=== PATIENT | female | born 1970 | race Caucasian/White ===

== ENCOUNTER 2016-09-13 06:22 | Inpatient (IN) | payer OTHER ==
[2016-09-12 09:19] VITALS: BMI 35.5
[2016-09-13] MEDS ORDERED: PNEUMOC 13-VAL CONJ-DIP CRM/PF 0.5 ML DISP.SYRIN IM ONE (06:57)
[2016-09-13] MEDS ORDERED: BUPIVACAINE HCL/PF 0.5% (5MG/ML) 10 ML VIAL ONE (07:18)
[2016-09-13] MEDS ORDERED: PROPOFOL 20 ML ONE ×3 (07:32)
[2016-09-13] MEDS ORDERED: LIDOCAINE HCL/PF 2% SDV 5ML VIAL ONE (07:32)
[2016-09-13] MEDS ORDERED: MIDAZOLAM HCL 2 MG/2 ML SINGLE DOSE VIAL ONE (07:32)
[2016-09-13] MEDS ORDERED: ROCURONIUM BROMIDE 50 MG/5 ML VIAL ONE (07:32)
[2016-09-13] MEDS ORDERED: SUCCINYLCHOLINE CHLORIDE 200 MG/10 ML VIAL ONE (07:32)
--- NOTE | 2016-09-13 08:13 | HP ---
History & Physical Update - History History: No Change - Physical Physical: No Change - Assessment Assessment: No Change - Plan Plan: No Change Currently as noted:: Morbid Obesity- for vertical sleeve gastrectomy
[2016-09-13] MEDS ORDERED: ceFAZolin SODIUM 1 GM VIAL ONE (08:18)
[2016-09-13] MEDS ORDERED: DEXAMETHASONE SOD PHOSPHATE 4 MG/1 ML VIAL ONE ×2 (08:33→09:38)
[2016-09-13] MEDS ORDERED: ceFAZolin SODIUM 1 GM VIAL IVPB ONE (08:53)
[2016-09-13] MEDS ORDERED: PHENYLEPHRINE HCL 10 MG/1 ML SINGLE DOSE VIAL ONE (09:03)
[2016-09-13] MEDS ORDERED: GLYCOPYRROLATE 0.2 MG/1 ML VIAL ONE (09:39)
[2016-09-13] MEDS ORDERED: NEOSTIGMINE METHYLSULFATE 0.5 MG/ML - 10 ML MDV ONE (09:39)
--- NOTE | 2016-09-13 10:04 | OP ---
Operative Note - Note: Operative Date: 09/13/16 Pre-Operative Diagnosis: Morbid obesity Operation: Laparoscopic vertical sleeve gastrectomy, upper endoscopy Post-Operative Diagnosis: Same as Pre-op Surgeon: Jameson Florez Antenna Machine Operator: Brandi Almanza Anesthesia: General Specimens Removed: Greater curvature of stomach Estimated Blood Loss (mls): 30 Drains & Tubes with Location: 36 Fr Bougie Operative Report Dictated: Yes
--- NOTE | 2016-09-13 10:23 | SURG ---
Surgery Laundry Folder Note Laundry Folder: Brandi Almanza PA-C Date of Service: 09/13/16 Diagnosis: Morbid obesity Procedure: Laparoscopic vertical sleeve gastrectomy, upper endoscopy I was present for the entirety of the operative procedure. For further detail, please refer to operative report. Visit type - Case Type Case Type: Scheduled Admission - Emergency Emergency Visit: No - New patient This patient is new to me today: Yes Date on this admission: 09/13/16 - Critical Care Critical Care patient: No
[2016-09-13] MEDS ORDERED: HYDROmorphone HCL CARPU-JECT 1 MG/1 ML DISP.SYRIN IVPUSH PRN (10:28)
[2016-09-13] MEDS ORDERED: HYDROmorphone HCL CARPU-JECT 2 MG/1 ML DISP.SYRIN IVPUSH ONE ×4 (10:30→11:00)
[2016-09-13] MEDS ORDERED: HYDROmorphone HCL CARPU-JECT 2 MG/1 ML DISP.SYRIN ONE ×2 (10:32→10:50)
[2016-09-13] MEDS: ACETAMINOPHEN 1000 MG/100 ML VIAL (NON FORMULARY) IVPB SCH ×3 (11:00→23:31)
[2016-09-13] MEDS: INSULIN SLIDING SCALE (NOVOLOG) 1 VIAL SQ SCH ×2 (11:04→17:01)
[2016-09-13] MEDS ORDERED: ACETAMINOPHEN 1000 MG/100 ML VIAL (NON FORMULARY) IVPB ONE (11:05)
--- NOTE | 2016-09-13 11:06 | SPEC ---
DATE OF OPERATION: 09/13/2016 SURGEON: Jameson Florez MD MAINTENANCE SHOP CLERK: JOHN Mauricio PREOPERATIVE DIAGNOSIS: Morbid obesity. POSTOPERATIVE DIAGNOSIS: Morbid obesity. PROCEDURE: Laparoscopic vertical sleeve gastrectomy and upper endoscopy. SPECIMEN: Greater curvature of the stomach. ESTIMATED BLOOD LOSS: 30 mL. DRAINS: None. ANESTHESIA: GET. REASON FOR PROCEDURE: This 46-year-old female presented to the office for evaluation for weight loss options. After describing different options, she decided to proceed with a laparoscopic, possible open vertical sleeve gastrectomy and upper endoscopy. The risks and benefits of the procedure were explained. RISKS AND BENEFITS: After describing the different options for weight loss management, the patient decided to proceed with a laparoscopic, possible open vertical sleeve gastrectomy. The patient was seen by the respective subspecialties and cleared for surgery. The risks and benefits of the procedure were explained. These included bleeding, infection, hernia, HI, DVT, PE, injury to surrounding structures including the liver, colon, bowel, spleen, esophagus, vessel injury, nerve injury, weight regain, gastric leak, staple line leak, sleeve leak, obstruction, vitamin deficiency, hair loss, and as some of the possible complications. The patient understood and signed informed consent. DESCRIPTION OF PROCEDURE: The patient was placed supine on the operating room table. The patient underwent general endotracheal intubation. A Hough catheter was inserted. The arms were brought out at 90 degrees and secured. A foot board was placed, and the legs were secured laterally with padding. The abdomen was prepped and draped in the usual sterile fashion. A timeout was performed. An incision was made in the left upper quadrant and a Veress needle inserted. Pneumoperitoneum was established. Subsequently, the Veress needle was removed, and a 12-mm trocar was placed. The laparoscopic camera was inserted, and inspection of the abdominal cavity was performed. An incision was made in the supraumbilical region, and a 15-mm trocar placed under direct visualization. A 5-mm trocar was then placed in the right upper quadrant, and a 5-mm trocar placed below the left subcostal margin. A stab wound was made in the subxiphoid area, and a Catalina clamp inserted and removed to dilate the tract. A Luis liver retractor was inserted. The post was secured at the bedside by the nursing staff. The patient was placed in steep reverse Trendelenburg position. The Luis liver retractor was used to secure the liver towards the anterior abdominal wall. The pylorus was identified and 6 cm proximal to it the lesser sac was entered using the LigaSure device. All lateral attachments to the greater curvature of the stomach including the short gastric vessels were ligated using the LigaSure device toward the gastrosplenic and gastrophrenic ligaments. Once this was done in its entirety, it was confirmed that all tubes within the nasal or oropharyngeal cavity including a temperature probe was removed by Anesthesia. The bougie was then inserted by Anesthesia. Transection of the stomach was then begun staying adjacent to the bougie but away from the angularis. Transection of the stomach was performed near the portion of the stomach where the lesser sac was entered. Two laparoscopic Endo- PEYMAN black loads were used at this location. Laparoscopic Endo-PEYMAN purple loads were then used for the remainder of the transection until the greater curvature of the stomach was fully transected. This was done staying close to the bougie. Care was taken to stay away from the angle of His cephalad. The staple line was then inspected. Hemostasis was identified. A leak test was then performed. The stomach was clamped distally to the staple line. Irrigation solution was placed in the left upper quadrant, An upper endoscopy was performed after the 36-Turkmen bougie was removed from the oral cavity. The entirety of the staple line was inspected and noted to be fully intact. No evidence of leak or obstruction was noted. At the end, the stomach was fully suctioned and the endoscope removed. At this point, the irrigation solution was suctioned, and again hemostasis noted. The 15-mm supraumbilical trocar was then removed, and the specimen removed from the site using a sponge stick miguel. The specimen was inspected, and a Veress needle inserted. The specimen insufflated adequately, and no leak was identified. The staple line was noted to be intact. A Morteza-New device was then used to temporarily close the fascia with a 0 Vicryl suture at this site. The 15-mm trocar was then reinserted and the 12-mm trocar in the left upper quadrant removed. The fascia at this site was then closed using a Morteza-New device with a 0 Vicryl suture. Again, hemostasis was noted. The Luis liver retractor was then removed under direct visualization. Pneumoperitoneum was desufflated, and the fascial sutures were secured. Hemostasis was noted at all incision sites, and Marcaine was injected at all incision sites. All incision sites were closed using 4-0 Biosyn. Sterile dressings were applied. The patient tolerated the procedure well and was transferred to the recovery room in stable condition with the Hough catheter intact. The patient was transferred to telemetry for further monitoring. Elisabeth [id number] MTDD
[2016-09-13] MEDS ORDERED: METOCLOPRAMIDE HCL INJECTION 10 MG/2 ML VIAL IVPUSH ONE ×2 (11:15→11:36)
[2016-09-13] MEDS ORDERED: FAMOTIDINE 20 MG/50 ML IVPB 50 ML IVPB ONE (11:39)
[2016-09-13] MEDS ORDERED: FAMOTIDINE 20 MG PREMIXED IVPB IVPB ONE (11:44)
[2016-09-13 11:59] LABS: MCH 29.1 pg (25.7-33.7); MCHC 32.7 g/dl (32.0-36.0); MEAN PLT VOLUME 7.3 fl (7.5-11.1); PLATELET COUNT 290 K/MM3 (134-434); RDW 13.5 % (11.6-15.6); WHITE BLOOD COUNT 13.9 K/mm3 (4.0-10.0)
[2016-09-13 12:27] LABS: ALBUMIN 3.3 g/dl (3.4-5.0); ANION GAP 7 (8-16); BILIRUBIN,TOTAL 0.4 mg/dL (0.2-1.0); CALCIUM 8.4 mg/dL (8.5-10.1); CO2 28 mmol/L (21-32); CREATININE 0.6 mg/dL (0.55-1.02); GLUCOSE,RANDOM 172 mg/dL (74-106); SGOT/AST 29 U/L (15-37); SGPT/ALT 35 U/L (12-78); TOT PROT 6.6 g/dl (6.4-8.2)
[2016-09-13 12:28] LABS: ALK PHOS 58 U/L (45-117)
[2016-09-13] MEDS: METOCLOPRAMIDE HCL INJECTION 10 MG/2 ML VIAL IVPB SCH ×2 (15:40→21:47)
[2016-09-13] MEDS: ONDANSETRON 4 MG/2 ML VIAL IVPB SCH ×3 (15:40→21:47)
[2016-09-13] MEDS: SODIUM CHLORIDE 1,000 ML IV SCH ×2 (15:41→21:00)
[2016-09-13] MEDS: HYDROmorphone HCL CARPU-JECT 1 MG/1 ML DISP.SYRIN IVPB PRN ×2 (15:52→20:40)
[2016-09-13] MEDS: FAMOTIDINE 20 MG/50 ML IVPB 50 ML IVPB SCH (21:47)
[2016-09-13] MEDS: ENOXAPARIN NA (PORCINE) 40 MG/0.4 ML DISP.SYRIN SQ SCH (21:47)
[2016-09-14] MEDS: ONDANSETRON 4 MG/2 ML VIAL IVPB SCH ×6 (02:59→23:21)
[2016-09-14] MEDS: METOCLOPRAMIDE HCL INJECTION 10 MG/2 ML VIAL IVPB SCH ×4 (02:59→20:11)
[2016-09-14] MEDS: SODIUM CHLORIDE 1,000 ML IV SCH ×3 (04:20→18:14)
[2016-09-14] MEDS: ACETAMINOPHEN 1000 MG/100 ML VIAL (NON FORMULARY) IVPB SCH (04:45)
[2016-09-14] MEDS: INSULIN SLIDING SCALE (NOVOLOG) 1 VIAL SQ SCH ×3 (06:24→18:12)
[2016-09-14 07:34] LABS: MCH 29.4 pg (25.7-33.7); MCHC 32.9 g/dl (32.0-36.0); MEAN CELL VOLUME 89.4 fl (80-96); MEAN PLT VOLUME 7.6 fl (7.5-11.1); PLATELET COUNT 248 K/MM3 (134-434); RDW 13.7 % (11.6-15.6); WHITE BLOOD COUNT 9.6 K/mm3 (4.0-10.0)
[2016-09-14 08:21] LABS: ALBUMIN 2.9 g/dl (3.4-5.0); ALK PHOS 47 U/L (45-117); ANION GAP 9 (8-16); BILIRUBIN,TOTAL 0.4 mg/dL (0.2-1.0); CO2 26 mmol/L (21-32); CREATININE 0.5 mg/dL (0.55-1.02); GLUCOSE,RANDOM 96 mg/dL (74-106); SGOT/AST 18 U/L (15-37); SGPT/ALT 26 U/L (12-78); TOT PROT 5.9 g/dl (6.4-8.2)
--- NOTE | 2016-09-14 09:36 | PN ---
Progress Note (short form) - Note Progress Note: POD 1 Laparoscopic vertical sleeve gastrectomy, EGD Pain controlled No nausea Vital Signs Period Temp Pulse Resp BP Sys/Cristina Pulse Ox Last 24 Hr 97.5 F-98.8 F 57-90 16-20 100-125/45-76 95-98 Abd soft, dressings intact CBC,CMP WBC 9.6 K/mm3 (4.0-10.0) D 09/14/16 05:48 RBC 3.49 M/mm3 (3.60-5.2) L 09/14/16 05:48 Hgb 10.3 GM/dL (10.7-15.3) L D 09/14/16 05:48 Hct 31.2 % (32.4-45.2) L D 09/14/16 05:48 MCV 89.4 fl (80-96) 09/14/16 05:48 MCH 29.4 pg (25.7-33.7) 09/14/16 05:48 MCHC 32.9 g/dl (32.0-36.0) 09/14/16 05:48 RDW 13.7 % (11.6-15.6) 09/14/16 05:48 Plt Count 248 K/MM3 (134-434) 09/14/16 05:48 MPV 7.6 fl (7.5-11.1) 09/14/16 05:48 Sodium 141 mmol/L (136-145) 09/14/16 05:48 Potassium 4.3 mmol/L (3.5-5.1) 09/14/16 05:48 Chloride 106 mmol/L (98-107) 09/14/16 05:48 Carbon Dioxide 26 mmol/L (21-32) 09/14/16 05:48 Anion Gap 9 (8-16) 09/14/16 05:48 BUN 7 mg/dL (7-18) D 09/14/16 05:48 Creatinine 0.5 mg/dL (0.55-1.02) L 09/14/16 05:48 Creat Clearance w eGFR > 60 (>60) 09/14/16 05:48 POC Glucometer 104 UNITS (()) 09/14/16 06:21 Random Glucose 96 mg/dL (74-106) D 09/14/16 05:48 Calcium 8.0 mg/dL (8.5-10.1) L 09/14/16 05:48 Total Bilirubin 0.4 mg/dL (0.2-1.0) 09/14/16 05:48 AST 18 U/L (15-37) D 09/14/16 05:48 ALT 26 U/L (12-78) D 09/14/16 05:48 Alkaline Phosphatase 47 U/L (45-117) 09/14/16 05:48 Total Protein 5.9 g/dl (6.4-8.2) L 09/14/16 05:48 Albumin 2.9 g/dl (3.4-5.0) L 09/14/16 05:48 Serum , Qual Negative 09/13/16 06:45 UGI- no leak/obstruction OOB Clears Doing well D/C planning in am
[2016-09-14] MEDS: FAMOTIDINE 20 MG/50 ML IVPB 50 ML IVPB SCH ×2 (10:35→21:01)
[2016-09-14] MEDS: ENOXAPARIN NA (PORCINE) 40 MG/0.4 ML DISP.SYRIN SQ SCH ×2 (10:35→21:01)
--- NOTE | 2016-09-14 10:46 | PN ---
Progress Note (short form) - Note Progress Note: Anesthesia postop note 46 y/o F s/p GA for laparoscopic gastric sleeve POD#1, aaox3, vss, no complaints. No anesthesia complications.
[2016-09-14] MEDS: oxyCODONE HCL 5 MG TABLET PO PRN ×3 (10:53→20:07)
[2016-09-14] MEDS: ACETAMINOPHEN 325 MG TABLET (FP) PO PRN ×3 (10:55→20:06)
--- NOTE | 2016-09-14 14:55 | PATH ---
Surgical Pathology Report Patient Name: TAISHA JUSTIN [facility]. Rec. #: [id number] /Age/Gender: 1970 (Age: 46) / F Account: [id number] Location: 4 W TELEMETRY U Taken: 09/13/2016 Received: 09/13/2016 Reported: 09/14/2016 Physicians: Jameson Florez M.D. Specimen(s) Received GREATER CURVATURE OF STOMACH Clinical History Morbid obesity Final Diagnosis STOMACH, GREATER CURVATURE, SLEEVE GASTRECTOMY: PORTION OF UNREMARKABLE STOMACH. IMMUNOSTAIN FOR H. PYLORI IS NEGATIVE. Electronically Signed Sunday Jc M.D. Gross Description Received in formalin, labeled "greater curvature of stomach," is an 89 gram, 17.5 x 4.0 x 3.0 cm. portion of stomach with a stapled margin of resection. The serosa is cohen-miller with minimal attached fat. The mucosa is cohen-pink with normal folds. No mucosal masses are identified. Manual Arts Therapist sections are submitted in one cassette. /09/13/2016 [facility]09/13/2016
[2016-09-15] MEDS: ONDANSETRON 4 MG/2 ML VIAL IVPB SCH ×3 (02:56→09:49)
[2016-09-15] MEDS: METOCLOPRAMIDE HCL INJECTION 10 MG/2 ML VIAL IVPB SCH ×2 (02:57→09:49)
[2016-09-15] MEDS: oxyCODONE HCL 5 MG TABLET PO PRN ×2 (05:22→10:43)
[2016-09-15] MEDS: ACETAMINOPHEN 325 MG TABLET (FP) PO PRN ×2 (05:22→10:44)
[2016-09-15] MEDS: INSULIN SLIDING SCALE (NOVOLOG) 1 VIAL SQ SCH ×2 (06:29→13:34)
--- NOTE | 2016-09-15 07:55 | DS ---
Physical Examination Vital Signs: Vital Signs Temperature 98.3 F 09/15/16 02:00 Pulse Rate 67 09/15/16 06:00 Respiratory Rate 18 09/15/16 06:00 Blood Pressure 114/64 09/15/16 06:00 O2 Sat by Pulse Oximetry (%) 96 09/14/16 20:16 Constitutional: Yes: Well Nourished, No Distress Neck: Yes: WNL Cardiovascular: Yes: Regular Rate and Rhythm Respiratory: Yes: Regular Gastrointestinal: Yes: Soft Extremities: Yes: WNL Wound/Incision: Yes: Dressing Dry and Intact Neurological: Yes: Alert, Oriented Labs: CBC, BMP 09/14/16 05:48 09/14/16 05:48 Discharge Summary Reason For Visit: DRUG INDUCED OBESITY/SNORING Current Active Problems Morbid obesity due to excess calories (Acute) Procedures: Principal: Vertical sleeve gastrectomy Condition: Stable - Instructions Diet, Activity, Other Instructions: 132 [facility] Jameson Florez M.D. [address] [place] [address], [address] [facility] [place] [address] Robotic, Bariatric and General Surgery Postoperative Instructions for Bariatric Surgery Activity: Resume normal everyday activity as tolerated. You may walk and climb stairs without any limitation. We encourage you to walk as often as you can Do not lift anything more than 10 pounds for 8 weeks. At that time, you can return to full activity, including the gym, without limitation. Do not drive a motor vehicle while taking prescribes narcotic pain medication. Wound Care: If you have a bandage in place, leave it on for 3 days. At that time you may remove the outer bandage. If there are strips of tape on the skin after removing the outer bandage, leave them in place. They will fall off by themselves. Do not remove them. If there is clear glue on the skin after removing the outer bandage, leave it in place. Do not pick at it or peel it off. You may shower after taking the outer bandage off, 3 days after your surgery. If incisions become red, warm or open, please call the office. Diet: Continue a sugar-free, non-carbonated Clear liquid diet three times a day for the first week-Stage I diet. In addition, you should drink 8 ounces of water every hour. When drinking, sips should be slow and steady, not large and quick. After the first week, call the office to be advanced to the next dietary stage. Do not advance stages until instructed. Your diet will be advanced over the phone each week. Medications/Pain Management: You may resume previous medications unless told otherwise. The pills may be swallowed whole or broken if scored. You may take the prescribed narcotic pain medication as needed. If the narcotic medication is not needed for pain control, you may take Tylenol. Avoid all other pain medications including Advil, Ibuprofen, Motrin, Aspirin, Naprosyn, Aleve, Celebrex. You will receive Pepcid. Please take this twice a day as prescribed. Dizziness,Headaches/Gas Pain: Make sure you are getting enough fluids daily. Patients on diuretics or water pills may need medication adjusted. Some fluids such as broth or Gatorade may help. Gas pains are common in the first few weeks after surgery. At times they can be worse than surgical pain. Walking can help. You can also use Mylanta, Maalox, or Gas-X. Vomiting/Nausea: This may occur if you eat too fast, don't chew, or eat too much. Go back to fluids. If the vomiting or nausea persists, call the office. Constipation/Diarrhea: You may experience a change in bowel habits. Many things affect this, including a decrease in food intake, not enough fluid and taking pain medication. Some people experience diarrhea after the barium swallow in x-ray. If either persist, call the office. Follow up: Call the office at [phone] for an appointment 2 weeks after your surgical procedure. Disposition: HOME - Home Medications Comprehensive Discharge Medication List: Ambulatory Orders Calcium Carb, Citrate/Vit D3 [Calcium + D3 ER Tablet] 1 each PO DAILY 09/12/16 Cyanocobalamin [Vitamin B12 -] 1,000 mcg PO DAILY 09/12/16 Gabapentin 100 mg PO PRN 09/12/16 Liraglutide [Victoza -] 0.6 mg SQ DAILY@0700 09/12/16 Lisinopril 10 mg PO HS 09/12/16 Metformin HCl 500 mg PO BID 09/12/16 Naproxen [Naprosyn -] 500 mg PO PRN 09/12/16 Famotidine [Pepcid] 20 mg PO BID #60 tablet 09/13/16 Oxycodone HCl/Acetaminophen [Percocet 5-325 mg Tablet] 1 - 2 tab PO Q6H #28 tab MDD 4 09/13/16
[2016-09-15] MEDS: FAMOTIDINE 20 MG/50 ML IVPB 50 ML IVPB SCH (09:08)
[2016-09-15] MEDS: ENOXAPARIN NA (PORCINE) 40 MG/0.4 ML DISP.SYRIN SQ SCH (09:08)
[2016-09-15 12:03] VITALS: BP 130/73; PULSE 66; TEMP 97.7
== END 2016-09-15 14:30 | disposition home or self-care (01) | DRG 403 ==
LOC: JSAMEDAYSX 06:22 → EDSTATUS 10:00 → J4W 13:39
PROVIDERS: ADMIT Surgery; ATTEND Surgery
PROC: 0DJ08ZZ Inspection of Upper Intestinal Tract, Via Natural or Artificial Opening Endoscopic (ICD-10-PCS; 2016-09-13)
PROC: 0DB64Z3 Excision of Stomach, Percutaneous Endoscopic Approach, Vertical (ICD-10-PCS; principal; 2016-09-13 08:00)
DX: E66.01 Morbid (severe) obesity due to excess calories (principal); Z68.36 Body mass index [BMI] 36.0-36.9, adult
CPT/HCPCS: 36415; 74241-TC; 80053; 84703; 85027; 86850; 86900; 86901; 88305-TC; 94010; 94760